=== PATIENT | female | born 1990 | race Caucasian/White ===

== ENCOUNTER 2025-07-01 10:16 | Emergency (ER) | payer BC, SELFPAY ==
--- NOTE | ~2025-07-01 | XR_ITS ---
EXAMINATION: XR chest 2V DATE: 07/01/2025 10:48 INDICATION: Shortness of breath. Chest heaviness. TECHNIQUE: Frontal and lateral views of the chest were obtained. COMPARISON: None. FINDINGS: Calcified left lung nodules and calcified left hilar and mediastinal lymph nodes are consistent with old granulomatous disease. No pleural effusion or pneumothorax. The heart size is normal. IMPRESSION: 1. No acute cardiopulmonary disease. Reviewed, dictated and finalized at location E.
--- NOTE | 2025-07-01 10:17 | ED.SOB ---
HPI - SOB/Dyspnea General Chief Complaint: Upper Respiratory Infection Stated Complaint: Shortness of Breath/Headache Time Seen by Provider: 07/01/25 10:17 Source: patient Mode of arrival: ambulatory Limitations: no limitations History of Present Illness HPI Narrative: Kady is a 35-year-old female patient presenting to the clinic today with complaints fatigue, shortness of breath, chest heaviness, and headache x2 days. She reports having some nasal congestion in the mornings due to allergies however that resolves during the day. Last menstrual period was 1.5 weeks ago-denies heavy vaginal bleeding. Took at home test was negative. Denies any fevers, chills, body aches, chest pain, or palpitations. No history of blood clotting disorders. Denies any history of anxiety. No history of asthma or COPD. She is a nonsmoker. No history of high blood pressure or diabetes. B/P elevated in the clinic today. Has had high cholesterol-is not on any treatment for this. Related Data Home Medications ?Medication ?Instructions ?Recorded ?Confirmed ?Last Taken ?Type B12 07/01/25 Unknown History 07/01/25 Unknown History sertraline 50 mg tablet mg 07/01/25 Unknown History Allergies Allergy/AdvReac Type Severity Reaction Status Date / Time No Known Allergies Allergy Verified 07/01/25 10:29 Review of Systems Review of Systems: Pertinent positives per HPI. Patient denies any fever, chills, rash, visual changes, dizziness, cough, sore throat, chest pain, palpitations, nausea, vomiting, diarrhea, constipation, abdominal pain, or any urinary issues. PMFSH Comments At the time of my signature, I reviewed and agree with the nursing past medical, surgical, social, and family history. There is no relevant family history pertinent to the patient complaint. Exam Narrative: General: Well-developed, obese, in no apparent distress Head: Normocephalic, atraumatic Eyes: Pupils equally round and reactive to light bilaterally, EOM intact, sclera and conjunctive clear, no discharge, lids normal Ears: TMs intact and clear, ear canals clear, no drainage, grossly hearing normal. Nose: Nares patent, no discharge, no inflammation, no sinus tenderness. Mouth: Oropharynx without lesions or masses, good dentition, MMM. Neck: Supple, trachea midline, no enlargement of anterior or posterior cervical nodes, no thyroid masses or goiter palpable. Cardio: Regular rate and rhythm, s1 and s2 normal, no murmur appreciated. Resp: Clear to auscultation bilaterally anteriorly and posteriorly, no rhonchi, rales, wheezing or rubs Course Course Emergency Course: Portions of this record may have been created with voice recognition software. Level of Care: Express Care Visit Vital Signs Vital signs: Vital Signs Temperature 36.4 C 07/01/25 10:23 Pulse Rate 83 07/01/25 10:23 Respiratory Rate 18 07/01/25 10:23 Blood Pressure 154/75 H 07/01/25 10:23 Pulse Oximetry 99 07/01/25 10:23 Oxygen Delivery Room Air 07/01/25 10:23 Temperature 36.4 C 07/01/25 10:23 Pulse Rate 83 07/01/25 10:23 Respiratory Rate 18 07/01/25 10:23 Blood Pressure 154/75 H 07/01/25 10:23 Pulse Oximetry 99 07/01/25 10:23 Oxygen Delivery Room Air 07/01/25 10:23 Vital signs reviewed MDM - SOB/Dyspnea MDM Narrative Medical decision making narrative: At the time of visit patient is resting comfortably on the exam table. Patient appears to be nontoxic. Complaints fatigue, shortness of breath, chest heaviness, and headache x2 days. She reports having some nasal congestion in the mornings due to allergies however that resolves during the day. Last menstrual period was 1.5 weeks ago-denies heavy vaginal bleeding. Took at home test was negative. Denies any fevers, chills, body aches, chest pain, or palpitations. No history of blood clotting disorders. Denies any history of anxiety. No history of asthma or COPD. She is a nonsmoker. No history of high blood pressure or diabetes. B/P elevated in the clinic today. Has had high cholesterol-is not on any treatment for this. On exam patient has clear TMs bilaterally, no nasal drainage, nares are patent, oral pharynx normal, lung sounds are clear, heart rates regular rate and rhythm. EKG,COVID, chest x-ray was performed EKG: EKG shows normal sinus rhythm with heart rate of 67 beats per minute without ST elevation, depression, or T-wave inversion. Labs: COVID testing was negative in the clinic today. Chest x-ray: Negative for any acute cardiopulmonary process. Plan: Patient reporting shortness of breath and chest heaviness with headache. Test results were reviewed with the patient. All test results were reassuring. Shared decision making performed: Offer to send patient to the emergency room for further evaluation to rule out causes for headache, chest heaviness, shortness of breath. Explained to the patient that we cannot rule out electrolyte imbalance, anemia, dehydration-possible causes to her symptoms. She declined at this time would like to follow-up with her PCP-recommend calling PCP tomorrow to schedule appointment. Go the emergency room if symptoms worsen. Supportive measures were discussed with the patient and they voiced understanding discharge instructions and agrees to treatment plan. Return precautions reviewed Wells criteria for PE: 0.0?points Low risk group: 1.3% chance of PE in an ED population. Another study assigned scores <= as ?PE Unlikely? and had a 3% incidence of PE Differential Diagnosis Differential diagnosis: Likely acute exacerbation of chronic obstructive airways disease, congestive heart failure, community acquired pneumonia, asthma with exacerbation, pulmonary embolism and other (Anemia, dehydration, URI, NV, arrhythmia) Lab Data Labs: Lab Results 07/01/25 Range/Units 10:45 POC SARS CoV-2 Ag Negative (Negative) Imaging Data Radiologist's impression: [address] [place] [address] XRay Report Signed Patient: Kady Purcell : 1990 MR#: [id number] Age: 35 Acct:[id number] Loc: [facility] ADM Date: 07/01/[address]: Ordering Physician: Alexis Wang APRN Date of Service: 07/01/25 Procedure(s): XR chest 2V Accession Number(s): [id number] cc: Alexis Wang APRN; UNKNOWN,DOCTOR~ EXAMINATION: XR chest 2V DATE: 07/01/2025 10:48 INDICATION: Shortness of breath. Chest heaviness. TECHNIQUE: Frontal and lateral views of the chest were obtained. COMPARISON: None. FINDINGS: Calcified left lung nodules and calcified left hilar and mediastinal lymph nodes are consistent with old granulomatous disease. No pleural effusion or pneumothorax. The heart size is normal. IMPRESSION: 1. No acute cardiopulmonary disease. Reviewed, dictated and finalized at location E. Please be advised this is a medical document. It is intended for [id number] communication. It is written in medical language and may contain unfamiliar abbreviations or verbiage. Medical documents are intended to carry relevant information, facts as evident, and the clinical opinion of the practitioner at the time of the encounter. This report may have been done utilizing a voice recognition system. Attempts have been made to correct errors. However, there may be uncorrected grammatical, spelling, and recognition errors present. The file time of this note does not necessarily represent the time of service. Dictated By: Da Jewell MD 07/01/25 1049 Signed By: <Electronically signed by Da Jewell MD in OV> 07/01/25 1049 ECG Data EKG #1: Attestation: I personally reviewed and interpreted this ECG as follows: ECG completion date: 07/01/25 ECG completion time: 10:53 Prior ECG tracings: not available for review Interpretation: EKG shows normal sinus rhythm with a heart rate of 67 beats per minute without ST elevation, depression, or T-wave inversion. IL interval is 180 milliseconds, QRS durations 85 milliseconds, QT-QTC is 383-403 milliseconds, P-R-T axis is 3 33 45 Discharge Plan Discharge Clinical Impression: Headache, Shortness of breath, Chest heaviness Patient Disposition: Home Condition: Stable Instructions: Antibiotic Form, Acute Headache (ED), Shortness of Breath (ED) Additional Instructions: EKG is reassuring in the clinic today COVID testing was negative Chest x-rays negative for any acute cardiopulmonary process. Offer to send you to the emergency room for further evaluation and you declined at this time. Increase fluids and stay well hydrated May try Flonase and [id number] antihistamines such as Zyrtec or Claritin for allergy symptoms Go to the emergency room if her symptoms worsen-increase in shortness of breath, chest pain, weakness, lethargy, confusion, or any other concerning symptoms Follow-up with your PCP-call their office tomorrow to schedule appointment for this week Patient Language: Nepali Prescriptions: No Action sertraline 50 mg tablet B12 Follow-up/Referrals: UNKNOWN,DOCTOR [Primary Care Provider] Time of Disposition: 10:59 Quality NIHSS Nursing Documentation ED NIHSS nursing documentation: reviewed/agree
[2025-07-01 10:23] VITALS: BP 154/75; PULSE 83; RESP 18; TEMP 36.4; O2SAT 99
--- NOTE | 2025-07-01 10:41 | ECG_ITS ---
Test Date: 2025-07-01 10:53:28 Measurements Intervals [place] Rate: 67 P: 3 MT: 180 QRS: 33 QRSD: 85 T: 45 QT: 387 QTc: 411 Interpretive Statements SINUS RHYTHM CONSIDER INFERIOR INFARCT, AGE INDETERMINATE ABNORMAL ECG No previous ECG available for comparison Electronically Signed On 07-01-2025 16:48:37 CDT by Prabhjot Decker D.O.
[2025-07-01 10:46] LABS: EDCOVIDSCREEN Negative (Negative)
== END 2025-07-01 11:03 | disposition home or self-care (01) ==
PROVIDERS: Emergency Provider Nurse Practitioner Family
DX: R51.9 Headache, unspecified (principal); R06.02 Shortness of breath; R07.89 Other chest pain; Z20.822 Contact with and (suspected) exposure to COVID-19
CPT/HCPCS: 71046; 87426; 93005; 99213; G0463